=== PATIENT | male | born 1960 | race Caucasian/White ===

== ENCOUNTER 2020-11-13 08:35 | Outpatient (CLI) | payer BC ==
[2020-11-13] MEDS ORDERED: BARIUM SULFATE 135 ML SUSP.RECON (E-Z-HD) PO ONE (09:03)
== END 2020-11-13 19:12 | disposition home or self-care (01) ==
LOC: SRD 08:35
PROVIDERS: ATTEND Otolaryngology
DX: R13.19 Other dysphagia (principal)
CPT/HCPCS: 74220-TC